=== PATIENT | female | born 1985 | race Caucasian/White ===

== ENCOUNTER 2021-09-07 07:22 | Emergency (ER) | payer MEDICAID ==
[~2021-09-07] VITALS: Ht 170.2 cm; Wt 102.0 kg
[2021-09-07] MEDS ORDERED: TYLENOL500 MG PO (07:41)
[2021-09-07] MEDS ORDERED: BL IBUPROFEN200 MG PO (07:41)
[2021-09-07 07:43] VITALS: BP 117/60
[2021-09-07] MEDS ORDERED: PREDNISONE50 MG PO ×2 (08:00)
== END 2021-09-07 08:27 | disposition home or self-care (01) ==
LOC: ED 07:22
DX: M79.641 Pain in right hand (principal); M79.672 Pain in left foot; F17.210 Nicotine dependence, cigarettes, uncomplicated